=== PATIENT | male | born 1965 | race American Indian/Alaskan Native ===

== ENCOUNTER 2016-08-17 21:07 | Emergency (ER) | payer SELFPAY ==
--- NOTE | 2016-08-17 21:35 | Emergency Department Report ---
Chief Complaint: Dizziness Stated Complaint: WEAKNESS/DIZZINESS Time Seen by Provider: 08/17/16 21:29 - HPI History of Present Illness: PT c/o feeling bad for 2 weeks. PT states he has been throwing up. PT states he just now started to feel dizzy. PT states he has a hx of dizziness from hitting his chin. - ROS Review of Systems: -lubin + dizziness - vertigo + n/v + fever - Exam Vital Signs: Vital Signs 08/17/16 21:12 Temperature 97.3 F L Pulse Rate 82 Respiratory 16 Rate Blood Pressure 100/64 O2 Sat by Pulse 99 Oximetry Physical Exam: pt examined while sitting bent forward in wheelchair. PT states he can not put his head up due to the dizziness. pt is alert and follows commands. no cva tenderness ce MSE screening note: Focused history and physical exam performed. Due to findings the following was ordered: ekg, labs, ct ED Disposition for MSE Condition: Stable
[2016-08-17 22:03] LABS: Basophils % (Auto) 0.6 % (0.0-1.8); Eosinophils % (Auto) 3.2 % (0.0-4.3); Hematocrit 44.6 % (35.5-45.6); Hemoglobin 14.7 gm/dl (11.8-15.2); Mean Corpuscular HGB Conc 33 % (32-34); Mean Corpuscular Hemoglobin 30 pg (28-32); Mean Corpuscular Volume 90 fl (84-94); Platelet Count 238 K/mm3 (140-440); Red Blood Count 4.98 M/mm3 (3.65-5.03); Red Cell Distribution Width 15.9 % (13.2-15.2); White Blood Count 7.2 K/mm3 (4.5-11.0)
[2016-08-17 22:25] LABS: Alanine Aminotransferase 13 units/L (7-56); Albumin 4.1 g/dL (3.9-5); Albumin/Globulin Ratio 1.1 %; Alkaline Phosphatase 75 units/L (35-129); Anion Gap 22 mmol/L; Bilirubin,Total 0.4 mg/dL (0.1-1.2); Blood Urea Nitrogen 8 mg/dL (9-20); Carbon Dioxide 24 mmol/L (22-30); Chloride 94.1 mmol/L (98-107); Glucose 97 mg/dL (75-100); Lipase 12 units/L (13-60); Potassium 3.2 mmol/L (3.6-5.0); Sodium 137 mmol/L (137-145); Total Protein 7.7 g/dL (6.3-8.2)
--- NOTE | 2016-08-18 06:54 | Cat Scan Report ---
FINAL REPORT PROCEDURE: CT HEAD/BRAIN WO CON TECHNIQUE: Computerized tomography of the head was performed without contrast material. HISTORY: dizziness COMPARISON: No prior studies are available for comparison. FINDINGS: Skull and scalp: Normal. Paranasal sinuses: Normal. Ventricles and subarachnoid spaces: Normal. Cerebrum: No evidence of hemorrhage, acute infarction or mass . Cerebellum and brainstem: No evidence of hemorrhage, acute infarction or mass. Vasculature: Normal. Comments: None. IMPRESSION: Normal Examination
[2016-08-18 07:23] LABS: Urine Drugs of Abuse Note Disclamer
--- NOTE | 2016-08-18 07:47 | Emergency Department Report ---
ED General Adult HPI - General Chief complaint: Dizziness Stated complaint: WEAKNESS/DIZZINESS Time Seen by Provider: 08/17/16 21:29 Source: patient Mode of arrival: Wheelchair Limitations: No Limitations - History of Present Illness Initial comments: The patient is an extremely poor historian. He states that he has felt weakness abscesses generalized) for at least a week. He had some nausea and vomiting. He states he's not been eating well. He denies fever or chills. He denies previous medical history, psychiatric history or HIV positive. He does not complain of pain. His review of systems otherwise negative. He may be homeless. He is very vague about that. He states that he is noncompliant with all his medicines for the last at least 30 days but doesn't know what they are. He denies any previous hospitalization. -: week(s) Severity scale (0 -10): 0 Associated Symptoms: denies other symptoms, nausea/vomiting Treatments Prior to Arrival: none - Related Data Allergies Allergy/AdvReac Type Severity Reaction Status Date / Time No Known Allergies Allergy Unverified 08/17/16 21:15 ED Review of Systems ROS: Stated complaint: WEAKNESS/DIZZINESS Other details as noted in HPI Constitutional: denies: chills, fever Eyes: denies: eye pain, eye discharge, vision change ENT: denies: ear pain, throat pain Respiratory: denies: cough, shortness of breath, wheezing Cardiovascular: denies: chest pain, palpitations Endocrine: no symptoms reported Gastrointestinal: nausea, vomiting. denies: abdominal pain, diarrhea Genitourinary: denies: urgency, dysuria Musculoskeletal: denies: back pain, joint swelling, arthralgia Skin: denies: rash, lesions Neurological: denies: headache, weakness, paresthesias Psychiatric: denies: anxiety, depression Hematological/Lymphatic: denies: easy bleeding, easy bruising ED Past Medical Hx - Past Medical History Previous Medical History?: Yes Hx Diabetes: Yes - Surgical History Past Surgical History?: No - Social History Smoking Status: Current Some Day Smoker Substance Use Type: None ED Physical Exam - General Limitations: Language Barrier (patient speaks [place] but he is very difficult to understand.) General appearance: alert, in no apparent distress - Head Head exam: Present: atraumatic, normocephalic - Eye Eye exam: Present: normal appearance. Absent: scleral icterus - ENT ENT exam: Present: normal exam, mucous membranes moist - Neck Neck exam: Present: normal inspection. Absent: tenderness, meningismus - Respiratory Respiratory exam: Present: normal lung sounds bilaterally. Absent: respiratory distress - Cardiovascular Cardiovascular Exam: Present: regular rate, normal rhythm. Absent: systolic murmur, diastolic murmur, rubs, gallop - GI/Abdominal GI/Abdominal exam: Present: soft, normal bowel sounds. Absent: distended, tenderness, guarding, rebound, rigid - Rectal Rectal exam: Present: deferred - Extremities Exam Extremities exam: Present: normal inspection - Back Exam Back exam: Present: normal inspection - Neurological Exam Neurological exam: Present: alert, oriented X3, CN II-XII intact, normal gait, other (cerebellar testing was normal. No nystatin this.). Absent: motor sensory deficit - Psychiatric Psychiatric exam: Present: normal affect, normal mood - Skin Skin exam: Present: warm, dry, intact, normal color. Absent: rash ED Course Vital Signs 08/17/16 08/18/16 08/18/16 21:12 06:45 07:35 Temperature 97.3 F L 98.8 F 97.4 F L Pulse Rate 82 89 Respiratory 16 16 Rate Blood Pressure 100/64 Blood Pressure 120/73 [Left] O2 Sat by Pulse 99 99 Oximetry 08/18/16 07:36 Temperature Pulse Rate Respiratory Rate Blood Pressure 129/76 Blood Pressure [Left] O2 Sat by Pulse Oximetry - Reevaluation(s) Reevaluation #1: Reexamination the patient has no supplemental complaints. He has been rehydrated and given supplemental potassium. He will be discharged. 08/18/16 11:01 ED Medical Decision Making - Lab Data Result diagrams: 08/17/16 21:49 08/17/16 21:49 Laboratory Results - last 24 hr 08/17/16 08/17/16 08/17/16 21:49 21:49 21:49 WBC 7.2 RBC 4.98 Hgb 14.7 Hct 44.6 MCV 90 MCH 30 MCHC 33 RDW 15.9 H Plt Count 238 Lymph % (Auto) 9.6 L Wise % (Auto) 8.3 H Eos % (Auto) 3.2 Baso % (Auto) 0.6 Lymph # 0.7 L Wise # 0.6 Eos # 0.2 Baso # 0.0 Seg Neutrophils % 78.3 H Seg Neutrophils # 5.6 Sodium 137 Potassium 3.2 L Chloride 94.1 L Carbon Dioxide 24 Anion Gap 22 BUN 8 L Creatinine 1.0 Estimated GFR > 60 BUN/Creatinine Ratio 8.00 Glucose 97 Calcium 9.0 Total Bilirubin 0.4 AST 26 ALT 13 Alkaline Phosphatase 75 Troponin T < 0.010 Total Protein 7.7 Albumin 4.1 Albumin/Globulin Ratio 1.1 Lipase 12 L Laboratory Results - last 24 hr 08/17/16 08/17/16 08/17/16 21:49 21:49 21:49 WBC 7.2 RBC 4.98 Hgb 14.7 Hct 44.6 MCV 90 MCH 30 MCHC 33 RDW 15.9 H Plt Count 238 Lymph % (Auto) 9.6 L Wise % (Auto) 8.3 H Eos % (Auto) 3.2 Baso % (Auto) 0.6 Lymph # 0.7 L Wise # 0.6 Eos # 0.2 Baso # 0.0 Seg Neutrophils % 78.3 H Seg Neutrophils # 5.6 Sodium 137 Potassium 3.2 L Chloride 94.1 L Carbon Dioxide 24 Anion Gap 22 BUN 8 L Creatinine 1.0 Estimated GFR > 60 BUN/Creatinine Ratio 8.00 Glucose 97 Calcium 9.0 Magnesium Total Bilirubin 0.4 AST 26 ALT 13 Alkaline Phosphatase 75 Troponin T < 0.010 Total Protein 7.7 Albumin 4.1 Albumin/Globulin Ratio 1.1 Lipase 12 L Urine Color Urine Turbidity Urine pH Ur Specific Alto Urine Protein Urine Glucose (UA) Urine Ketones Urine Blood Urine Nitrite Urine Bilirubin Urine Urobilinogen Ur Leukocyte Esterase Urine WBC (Auto) Urine RBC (Auto) U Epithel Cells (Auto) Urine Bacteria (Auto) Hyaline Casts Urine Mucus Urine Opiates Screen Urine Methadone Screen Ur Barbiturates Screen Ur Phencyclidine Scrn Ur Amphetamines Screen U Benzodiazepines Scrn Urine Cocaine Screen U Marijuana (THC) Screen Drugs of Abuse Note 08/17/16 08/18/16 08/18/16 21:49 07:08 07:08 WBC RBC Hgb Hct MCV MCH MCHC RDW Plt Count Lymph % (Auto) Wise % (Auto) Eos % (Auto) Baso % (Auto) Lymph # Wise # Eos # Baso # Seg Neutrophils % Seg Neutrophils # Sodium Potassium Chloride Carbon Dioxide Anion Gap BUN Creatinine Estimated GFR BUN/Creatinine Ratio Glucose Calcium Magnesium 1.8 Total Bilirubin AST ALT Alkaline Phosphatase Troponin T Total Protein Albumin Albumin/Globulin Ratio Lipase Urine Color Yellow Urine Turbidity Clear Urine pH 5.0 Ur Specific [place] 1.014 Urine Protein <15 mg/dl Urine Glucose (UA) Neg Urine Ketones Tr Urine Blood Neg Urine Nitrite Neg Urine Bilirubin Neg Urine Urobilinogen 2.0 Ur Leukocyte Esterase Tr Urine WBC (Auto) 6.0 Urine RBC (Auto) 1.0 U Epithel Cells (Auto) 3.0 Urine Bacteria (Auto) 1+ Hyaline Casts 7 Urine Mucus Few Urine Opiates Screen Presumptive negative Urine Methadone Screen Presumptive negative Ur Barbiturates Screen Presumptive negative Ur Phencyclidine Scrn Presumptive negative Ur Amphetamines Screen Presumptive negative U Benzodiazepines Scrn Presumptive negative Urine Cocaine Screen Presumptive positive U Marijuana (THC) Screen Presumptive positive Drugs of Abuse Note Disclamer - EKG Data -: EKG Interpreted by Me EKG shows normal: sinus rhythm, axis, intervals, QRS complexes, ST-T waves Rate: normal - EKG Data Interpretation: other There are small diffuse Q waves in the inferolateral leads in particular. They' re not necessarily significant. Nonspecific ST-T wave changes are found in the inferior leads. Possible left posterior fascicular block arm lead reversal. 08/18/16 07:50 - Medical Decision Making The patient's mildly elevated anion gap is noted. I suspect he had some ketosis. I do not find any indication of an occult infection. He is appropriate for outpatient management and follow-up. Drug screen results are noted. Hypokalemia has been addressed. Critical care attestation.: If time is entered above; I have spent that time in minutes in the direct care of this critically ill patient, excluding procedure time. ED Disposition Clinical Impression: Generalized weakness, Hypokalemia, Substance abuse Disposition: DISCHARGED TO HOME OR SELFCARE Is pt being admited?: No Does the pt Need Aspirin: No Condition: Stable Instructions: Weakness (ED), Hypokalemia (ED) Referrals: PRIMARY CARE [Primary Care Provider] - 3-5 Days Time of Disposition: 11:02
[2016-08-18] MEDS ORDERED: K-DUR PO ONE (08:19)
[2016-08-18 08:22] LABS: Bacteria,Urine 1+ /HPF (Negative); Bilirubin,Urine NEG (Negative); Blood,Urine NEG (Negative); Ketones,Urine TR mg/dL (Negative); Leukocyte Esterase,Urine TR (Negative); Mucus,Urine FEW /HPF; Nitrite,Urine NEG (Negative); Protein,Urine <15 mg/dL mg/dL (Negative)
[2016-08-18 11:41] VITALS: BP 116/81
== END 2016-08-18 11:42 | disposition home or self-care (01) ==
LOC: ED 21:07
DX: R53.1 Weakness (principal); E87.6 Hypokalemia; F19.10 Other psychoactive substance abuse, uncomplicated; E11.9 Type 2 diabetes mellitus without complications; F17.200 Nicotine dependence, unspecified, uncomplicated
CPT/HCPCS: 36415; 70450; 80053; 80307; 81001; 82962; 83690; 83735; 84484; 85025; 93005; 93010; 99284